=== PATIENT | male | born 1980 | race Caucasian/White ===

== ENCOUNTER 2017-02-24 09:09 | Emergency (ER) | payer OTHER ==
[2017-02-24] MEDS ORDERED: NS 1,000 ML IV ONE (09:31)
[2017-02-24 09:35] LABS: % IMMATURE GRANULYOCYTES 0.2 % (0.0-1.1); ABSOLUTE IMMATURE GRANULOCYTES 0.01 10^3/uL (0.00-0.10); ADD DIFF? NO; ADD MORPH? NO; ADD SCAN? NO; ATYPICAL LYMPHOCYTE FLAG 10 (0-99); FRAGMENT RBC FLAG 0 (0-99); HEMOGLOBIN 16.2 g/dL (13.7-17.5); LEFT SHIFT FLG 0 (0-99); LIPEMIA HEMOLYSIS FLAG 90 (0-99); MEAN CELL HEMOGLOBIN 33.3 pg (27.9-34.1); MEAN CELL HEMOGLOBIN CONCENTR. 35.2 g/dL (32.4-36.7); MEAN CELL VOLUME 94.5 fL (81.5-99.8); MEAN PLATELET VOLUME 11.4 fL (8.7-11.7); PLATELET CLUMPS FLAG 10 (0-99); PLATELET COUNT 189 10^3/uL (150-400); RED BLOOD CELL COUNT 4.87 10^6/uL (4.40-6.38); RED CELL DISTRIBUTION WIDTH 11.9 % (11.5-15.2)
--- NOTE | 2017-02-24 09:38 | EDPHY ---
H & P Time Seen by Provider: 02/24/17 09:26 HPI/ROS: HPI Lower abdominal pain. 36-year-old male by private vehicle. This patient complains of intermittent right lower quadrant pain for the last 1-2 months. He reports that he was at work. He reports that the pain came on about 2 hours ago and has been worse than usual. He is concerned about appendicitis. He denies any urinary complaints. Last meal was 16 hours ago. He states that he intermittently fast. Last bowel movement was this morning. No bloody or melenic stool. No prior abdominal surgical history. ROS: Constitutional: No fever, no chills. No weakness. Eyes: No discharge. No changes in vision. ENT: No sore throat. No nasal congestion or rhinorrhea. Respiratory: No cough. No shortness of breath. Cardiac: No chest pain, no palpitations. Gastrointestinal: As above, no vomiting, no diarrhea. Genitourinary: No hematuria. No dysuria or increased frequency with urination. Musculoskeletal: No back pain. No neck pain. No myalgias or arthralgias. Skin: No rashes. Neurological: No headache. No focal weakness or altered sensation. Past medical history: Denies. Social history: Nonsmoker. No alcohol. Here by himself. Physical Exam: General Appearance: Alert, no distress. This patient is responding to questions appropriately and in full sentences. This patient appears well- hydrated and well-nourished. Eyes: Pupils equal and round no pallor or injection. No lid edema, erythema or injection. Respiratory: There are no retractions, lungs are clear to auscultation with good air movement bilaterally. Cardiovascular: Regular rate and rhythm. No murmur. Gastrointestinal: Abdomen is soft with vague right lower quadrant tenderness on palpation which is mild, no masses, bowel sounds normal. No focal tenderness at McBurney's point. No Contreras sign. Testicular exam: no clinical evidence of torsion. Normal testicular live. No masses, erythema, warmth or tenderness on palpation. Normal male genitalia. Neurological: Motor sensory function is grossly intact. Cranial nerves are normal. Gait is normal. Skin: Warm and dry, no rashes. Musculoskeletal: Neck is supple and nontender. Extremities are symmetrical. All joints range without pain or impingement. Psychiatric: No agitation. No depression. Database: EKG: Imaging: CT scan of abdomen and pelvis with IV contrast: Read as normal by staff radiologist. The appendix is well visualized and is normal. Results were discussed with Dr. Cornell Pozo. Procedures: Emergency department course: IV placed. Vital Signs medication allergies reviewed. He does not require pain medications at this time. He consents to CT imaging to evaluate for appendicitis. 11:45 a.m., patient re-evaluated. Resting comfortably at this time. He denies any significant pain now. Results of his CT scan and emergency department workup discussed with him. Repeat abdominal exam is soft, nontender nondistended. He feels comfortable going home. I will refer him to his primary care physician, Dr. Ramsey, for re-evaluation and gastroenterology consultation as needed. He is in agreement with this plan. Return to emergency department precautions discussed. All of his questions were answered. He was discharged in good condition. Differential Diagnosis: The differential diagnosis on this patient includes but is not limited to constipation, colitis. Appendicitis, cholecystitis, hepatitis, volvulus, testicular torsion, nephrolithiasis unlikely. This represents a partial list of diagnoses considered. These considerations are based on history, physical exam, past history, reassessment and diagnostic testing. Smoking Status: Never smoked Constitutional: Initial Vital Signs Temperature (C) 36.5 C 02/24/17 09:10 Heart Rate 73 02/24/17 09:10 Respiratory Rate 16 02/24/17 09:10 Blood Pressure 134/78 H 02/24/17 09:10 O2 Sat (%) 99 02/24/17 09:10 O2 Delivery Mode Room Air Allergies/Adverse Reactions: No Known Allergies Allergy (Unverified 02/24/17 09:13) Home Medications: Medication Instructions Recorded NK [No Known Home Meds] 02/24/17 Medical Decision Making - Data Points Laboratory Results: Laboratory Results 02/24/17 09:25 02/24/17 09:25 Medications Given: Discontinued Medications Sodium Chloride (Ns) 1,000 mls @ 0 mls/hr IV EDNOW ONE; Wide Open PRN Reason: Protocol Stop: 02/24/17 09:32 Last Admin: 02/24/17 10:25 Dose: 1,000 mls Departure - Departure Disposition: [facility] Inpatient Acute Clinical Impression: Right lower quadrant abdominal pain Condition: Good Instructions: Abdominal Pain (ED) Additional Instructions: Read and follow provided instructions. Follow-up with your primary care physician in 1-2 days for re-evaluation. You can discussed gastroenterology referral as needed with your primary care physician. Ibuprofen dosin mg every 6 hours with meals for the next 3 days only. Take only as needed for pain. Return to the emergency department for worsening pain, vomiting, fever or other serious concerns. Referrals: CORNELL RAMSEY [Primary Care Provider] - As per Instructions
[2017-02-24 09:51] LABS: ALANINE AMINOTRANSFERASE 41 IU/L (21-72); ALBUMIN 4.8 g/dL (3.5-5.0); ALKALINE PHOSPHATASE 87 IU/L (38-126); ANION GAP 16 mEq/L (8-16); ASPARTATE AMINOTRANSFERASE 34 IU/L (17-59); BILIRUBIN,TOTAL 1.7 mg/dL (0.1-1.4); BILIRUBIN-UNCONJUGATED 1.7 mg/dL (0.0-1.1); CARBON DIOXIDE 25 mEq/l (22-31); CHLORIDE 102 mEq/L (97-110); CREATININE 1.1 mg/dL (0.7-1.3); GLOMERULAR FILTRATION RATE > 60; GLUCOSE 89 mg/dL (70-100); POTASSIUM 4.1 mEq/L (3.5-5.2); SODIUM 143 mEq/L (134-144); TOTAL PROTEIN 8.1 g/dL (6.3-8.2)
[2017-02-24] MEDS ORDERED: IOPAMIDOL (ISOVUE-300) 100 ML BTL ONE (10:01)
[2017-02-24 11:30] LABS: COLOR YELLOW; LEUKOCYTE ESTERASE,URINE NEGATIVE (NEGATIVE); NITRITE,URINE NEGATIVE (NEGATIVE)
[2017-02-24 12:00] VITALS: BP 118/71; PULSE 66; RESP 18; TEMP 97.9; O2SAT 98
== END 2017-02-24 12:01 | disposition home or self-care (01) ==
PROC: 3E0337Z Introduction of Electrolytic and Water Balance Substance into Peripheral Vein, Percutaneous Approach (ICD-10-PCS; principal; 2017-02-24)
DX: R10.31 Right lower quadrant pain (principal); E86.9 Volume depletion, unspecified
CPT/HCPCS: Q9967

== ENCOUNTER → 2018-07-05 | Outpatient (CLI) | payer OTHER | LOC: BMCIMAGING 14:17 | PROVIDERS: ATTEND Family Medicine | DX: S82.831A Other fracture of upper and lower end of right fibula, initial encounter for closed fracture (principal) ==